=== PATIENT | female | born 2000 | race Two or more races ===

== ENCOUNTER 2024-07-20 06:48 | Inpatient (IN) | payer OTHER ==
[~2024-07-20] VITALS: Ht 157.5 cm; Wt 87.5 kg
[2024-07-20 06:23] VITALS: BP 124/80
[2024-07-20] MEDS ORDERED: AMPICILLIN SODIUM 2,000 MG VIAL IV ONE (07:00)
[2024-07-20] MEDS ORDERED: RINGERS SOLUTION,LACTATED 1,000 ML IV SCH (07:00)
[2024-07-20] MEDS ORDERED: ZOFRAN8 MG PO (07:07)
[2024-07-20 07:32] VITALS: BP 104/66
[2024-07-20 07:41] LABS: HEMOGLOBIN 11.5 g/dL (12.0-15.00); MEAN CELL VOLUME 77.9 fL (80.00-100.00); MEAN CORPUSCULAR HEMOGLOBIN 25.6 pg (27.00-32.0); MEAN CORPUSCULAR HGB CONC 32.9 g/dl (32.0-36.0); PLATELET COUNT 335 K/uL (150-450); RED BLOOD COUNT 4.49 M/uL (4.00-6.00); RED CELL DISTRIBUTION WIDTH 13.3 % (11.5-14.5)
[2024-07-20 08:29] LABS: INR < 0.93; PARTIAL THROMBOPLASTIN TIME 26.2 SECONDS (22.0-34.0)
[2024-07-20 09:07] LABS: ALBUMIN 2.7 gm/dL (3.4-5.0); BILIRUBIN TOTAL 0.23 mg/dL (0.3-1.2); CALCIUM 9.3 mg/dL (8.5-10.1); CREATININE SERUM 0.63 mg/dL (0.55-1.02); GFR 116.1; POTASSIUM 4.29 mEq/L (3.5-5.1); TOTAL PROTEIN 6.7 gm/dL (6.4-8.2)
[2024-07-20 11:00] VITALS: BP 129/72
[2024-07-20] MEDS ORDERED: OXYTOCIN 20 UNITS/500ML RL PIGGYBAG IV SCH (11:45)
[2024-07-20] MEDS ORDERED: AMPICILLIN SODIUM 1,000 MG VIAL IV SCH (12:00)
[2024-07-20] MEDS ORDERED: CITRIC ACID/SODIUM CITRATE 30 ML BLIST.PACK PO NR (12:15)
[2024-07-20 15:09] VITALS: BP 117/60
[2024-07-20] MEDS ORDERED: MORPHINE SULFATE 4 MG/ML CARTRIDGE IV ONE (16:30)
[2024-07-20] MEDS ORDERED: CEFOXITIN SODIUM 2,000 MG VIAL IV STA (18:09)
[2024-07-20] MEDS ORDERED: CITRIC ACID/SODIUM CITRATE 30 ML BLIST.PACK PO STA (18:09)
[2024-07-20] MEDS ORDERED: MORPHINE SULFATE 4 MG/ML VIAL IV ONE ×2 (20:55→21:25)
[2024-07-20] MEDS ORDERED: ERYTHROMYCIN BASE OPHT 1GM EACH TUBE OP ONE (21:00)
[2024-07-20] MEDS ORDERED: OXYTOCIN 10 UNITS/ML VIAL IV ONE (21:00)
[2024-07-20] MEDS ORDERED: OXYTOCIN 1,000 ML IV ONE (21:55)
[2024-07-20] MEDS ORDERED: KETOROLAC TROMETHAMINE 30 MG VIAL IM ONE ×2 (21:55)
[2024-07-20 22:11] VITALS: BP 131/80
[2024-07-20] MEDS ORDERED: OXYTOCIN 50,000 ML IV ONE (22:30)
[2024-07-20] MEDS ORDERED: MEPERIDINE HCL/PF 50 MG/ML VIAL IM PRN (22:45)
[2024-07-20] MEDS ORDERED: PROMETHAZINE HCL 25 MG/ML AMPUL IM PRN (23:00)
[2024-07-21] VITALS: BP 114/78
[2024-07-21] MEDS ORDERED: SIMETHICONE 125 MG CAPSULE PO SCH (01:00)
[2024-07-21 01:58] LABS: HEMATOCRIT 35.2 % (36.0-45.00); HEMOGLOBIN 11.5 g/dL (12.0-15.00); MEAN CELL VOLUME 78.6 fL (80.00-100.00); MEAN CORPUSCULAR HEMOGLOBIN 25.6 pg (27.00-32.0); MEAN CORPUSCULAR HGB CONC 32.5 g/dl (32.0-36.0); PLATELET COUNT 328 K/uL (150-450); RED BLOOD COUNT 4.48 M/uL (4.00-6.00); RED CELL DISTRIBUTION WIDTH 13.3 % (11.5-14.5)
[2024-07-21 04:30] VITALS: BP 108/72
[2024-07-21] MEDS ORDERED: CEFAZOLIN SODIUM 1,000 MG VIAL IV ONE (05:00)
[2024-07-21] MEDS ORDERED: KETOROLAC TROMETHAMINE 10 MG TABLET PO SCH (06:00)
[2024-07-21 07:52] LABS: HEMATOCRIT 32.7 % (36.0-45.00); HEMOGLOBIN 10.8 g/dL (12.0-15.00); MEAN CELL VOLUME 79.2 fL (80.00-100.00); MEAN CORPUSCULAR HEMOGLOBIN 26.1 pg (27.00-32.0); PLATELET COUNT 307 K/uL (150-450); RED BLOOD COUNT 4.13 M/uL (4.00-6.00); RED CELL DISTRIBUTION WIDTH 13.7 % (11.5-14.5)
[2024-07-21 08:11] VITALS: BP 109/68
[2024-07-21] MEDS ORDERED: OxyCODONE HCL/APAP UD (PERCOCET) PO SCH (13:00)
[2024-07-21 13:28] VITALS: BP 111/72
[2024-07-21 15:46] VITALS: BP 138/65
[2024-07-22] VITALS: BP 111/73
[2024-07-22 09:22] VITALS: BP 114/75
[2024-07-22] MEDS ORDERED: FF) RHO(D) IMMUNE GLOBULIN (POM) IM NR (11:15)
[2024-07-22 15:59] VITALS: BP 130/75
[2024-07-23 01:00] VITALS: BP 113/73
[2024-07-23 10:07] VITALS: BP 118/76
== END 2024-07-23 11:15 | disposition home or self-care (01) | DRG 787 ==
LOC: LDR 06:48 → O/R 19:49 → OB/GYN 20:25
PROVIDERS: Obstetrics & Gynecology Maternal & Fetal Medicine; ADMIT Obstetrics & Gynecology; ATTEND Obstetrics & Gynecology
PROC: 4A1HXCZ Monitoring of Products of Conception, Cardiac Rate, External Approach (ICD-10-PCS; 2024-07-20)
PROC: BY4FZZZ Ultrasonography of Third Trimester, Single Fetus (ICD-10-PCS; 2024-07-20)
PROC: 10D00Z1 Extraction of Products of Conception, Low, Open Approach (ICD-10-PCS; principal; 2024-07-20 18:45)
DX: O64.0XX0 Obstructed labor due to incomplete rotation of fetal head, not applicable or unspecified (principal); O41.03X0 Oligohydramnios, third trimester, not applicable or unspecified; O33.8 Maternal care for disproportion of other origin; O26.843 Uterine size-date discrepancy, third trimester; O36.8130 Decreased fetal movements, third trimester, not applicable or unspecified; Z3A.38 38 weeks gestation of pregnancy; Z37.0 Single live birth; Z20.822 Contact with and (suspected) exposure to COVID-19

== ENCOUNTER 2025-05-23 20:28 | Emergency (ER) | payer OTHER ==
[~2025-05-23] VITALS: Ht 157.5 cm; Wt 82.6 kg
[~2025-05-23 20:28] MED LIST: ZOFRAN8 MG PO
[2025-05-23 21:15] LABS: BASO % 0.3 % (0.1-1.2); EOS # 0.17 (0.04-0.54); EOS % 1.4 % (0.7-7.0); LYMPH # 3.32 (1.18-3.74); LYMPH % 27.2 % (19.3-53.1); MEAN PLATELET VOLUME 9.40 fl (9.4-12.4); MONO # 0.89 (0.24-0.82); MONO % 7.3 % (4.7-12.5); NEUT # 7.76 (1.56-6.13); NEUT % 63.5 % (34.0-71.1); RED CELL DISTRIBUTION WIDTH 14.4 % (11.6-14.4)
== END 2025-05-23 22:57 | disposition home or self-care (01) ==
LOC: ER 20:28
PROVIDERS: General Practice
DX: O20.9 Hemorrhage in early pregnancy, unspecified (principal); Z3A.01 Less than 8 weeks gestation of pregnancy

== ENCOUNTER 2025-09-15 15:22 | Inpatient (IN) | payer OTHER ==
[~2025-09-15] VITALS: Ht 157.5 cm; Wt 86.2 kg
--- NOTE | 2025-09-15 16:16 | NUR ---
PTE ALERTA Y ORIENTADA X3 REFIERE DOLOR ABDOMINAL EN EL AREA DE [place] Y UN EPISODIO DE VOMITOS ANTES DE PRESENTARSE A DAVION DE EMERGENCIAS. SE GERMAN S/V Y SE UBICA.
[2025-09-15] MEDS ORDERED: ONDANSETRON HCL 2 MG/ML VIAL IV ONE (17:00)
[2025-09-15] MEDS ORDERED: 0.9 % SODIUM CHLORIDE 1,000 ML IV SCH ×2 (17:00→22:15)
[2025-09-15] MEDS ORDERED: KETOROLAC TROMETHAMINE 30 MG VIAL IV ONE (17:00)
[2025-09-15] MEDS ORDERED: FAMOtidine 10 MG/ML (4ML VIAL) IV PUSH ONE (17:00)
[2025-09-15] MEDS ORDERED: ONDANSETRON HCL 2 MG/ML VIAL ONE (17:56)
[2025-09-15] MEDS ORDERED: FAMOTIDINE/PF 20 MG/2 ML VIAL ONE (17:56)
[2025-09-15] MEDS ORDERED: KETOROLAC TROMETHAMINE 30 MG VIAL ONE (17:56)
--- NOTE | 2025-09-15 18:08 | NUR ---
PACIENTE EVALUADA POR QUIEN ORNDENA TRATAMIENTO MEDICO, RN CHASE LE ORIENTA A PACIENTE SOBRE EL MISMO Y REFIERE ENTENDER, LE COLECTA MUESTRAS DE LABORATORIO, LE CANALIZA Y LE ADMINSITRA MEDICAMENTOS BAJO MEDIDAS ASEPTICAS, PENDIENTE ESTUDIO DE CT LUE[place] DE RESULTADOS DE LABORATORIO. SE LE HACE ENTREGA A PACIENTE ENVASE PARA COLECTA DE U/A.
[2025-09-15 18:34] LABS: BASO % 0.4 % (0.1-1.2); EOS # 0.05 (0.04-0.54); EOS % 0.4 % (0.7-7.0); LYMPH # 2.51 (1.18-3.74); LYMPH % 20.6 % (19.3-53.1); MEAN PLATELET VOLUME 9.50 fl (9.4-12.4); MONO # 0.59 (0.24-0.82); MONO % 4.8 % (4.7-12.5); NEUT # 8.94 (1.56-6.13); NEUT % 73.5 % (34.0-71.1); RED CELL DISTRIBUTION WIDTH 13.3 % (11.6-14.4)
[2025-09-15 18:42] LABS: ERYTHROCYTE SEDIMENTATION RATE 44 mm/hr (0-20)
[2025-09-15 19:06] LABS: ALT/SGPT 44.0 U/L (12-78); AST/SGOT 17.0 U/L (15-37); BILIRUBIN TOTAL 0.42 mg/dL (0.3-1.2); BUN CREA RATIO 17.0 (7.0-25.0); CREATININE SERUM 0.65 mg/dL (0.55-1.02); GFR 111.06; GLOBULINA 4.9 G/DL (2.4-3.5); GLUCOSE FASTING 84.0 mg/dL (65-100); OSMOLALITY SERUM 274.0 MOSM/KG (275-295)
[2025-09-15 19:07] LABS: URINE APPEARANCE Clear; URINE BILIRRUBIN Negative (NEGATIVE); URINE BLOOD Moderate; URINE COLOR Yellow; URINE GLUCOSE Negative (NEGATIVE); URINE LEUKOCYTE Small; URINE NITRATE Negative; URINE PROTEIN 30 (NEGATIVE); URINE UROBILINOGEN 0.2 E.U./dl
[2025-09-15 19:11] LABS: URINE BACTERIA 551.2 uL (0.0-1933); URINE EPITHELIAL CELLS 12.4 uL (0.0-38.8); URINE RBC 82.8 uL (0.0-20.8); URINE WBC 62.9 uL (0.0-23.2)
[2025-09-15 19:13] LABS: URINE CAST 0.14 uL (0.0-1.40); URINE KETONE 80 (NEGATIVE)
[2025-09-15] MEDS ORDERED: ACETAMINOPHEN 500 MG GEL..CAP PO PRN (22:15)
[2025-09-15] MEDS ORDERED: ONDANSETRON HCL 4 MG in 0.9 % SODIUM CHLORIDE 50 ML IV PRN (22:15)
[2025-09-15] MEDS ORDERED: MORPHINE SULFATE 4 MG/ML CARTRIDGE IV PRN (22:15)
[2025-09-15] MEDS ORDERED: MORPHINE SULFATE 2 MG/ML SYRINGE IV ONE (22:45)
[2025-09-16] MEDS ORDERED: PIPERACILLIN/TAZOBACTAM SODIUM 3.375 GM in DEXTROSE 5 % IN WATER 100 ML IV SCH
[2025-09-16] MEDS ORDERED: PIPERACILLIN/TAZOBACTAM SODIUM 3.375 GM VIAL IV ONE (00:26)
[2025-09-16 02:06] LABS: INR 1.01
[2025-09-16 08:00] VITALS: BP 110/75; O2SAT 98
[2025-09-16] MEDS ORDERED: FAMOTIDINE/PF 20 MG in 0.9 % SODIUM CHLORIDE 8 ML IV PUSH SCH ×2 (09:00→21:00)
[2025-09-16 16:00] VITALS: BP 108/69; O2SAT 100
[2025-09-17 06:45] LABS: BASO % 0.5 % (0.1-1.2); EOS # 0.17 (0.04-0.54); EOS % 2.0 % (0.7-7.0); LYMPH # 2.92 (1.18-3.74); LYMPH % 34.2 % (19.3-53.1); MEAN PLATELET VOLUME 10.20 fl (9.4-12.4); MONO # 0.60 (0.24-0.82); MONO % 7.0 % (4.7-12.5); NEUT # 4.80 (1.56-6.13); NEUT % 56.1 % (34.0-71.1); RED CELL DISTRIBUTION WIDTH 13.2 % (11.6-14.4)
[2025-09-17 07:55] LABS: ALT/SGPT 29.0 U/L (12-78); AST/SGOT 13.0 U/L (15-37); BILIRUBIN TOTAL 0.42 mg/dL (0.3-1.2); BUN CREA RATIO 15.0 (7.0-25.0); CREATININE SERUM 0.85 mg/dL (0.55-1.02); GFR 81.49; GLOBULINA 3.5 G/DL (2.4-3.5); GLUCOSE FASTING 93.0 mg/dL (65-100); OSMOLALITY SERUM 285.0 MOSM/KG (275-295)
[2025-09-17 08:27] VITALS: BP 96/64; O2SAT 98
[2025-09-17 16:00] VITALS: BP 118/79; O2SAT 99
[2025-09-18 00:51] VITALS: BP 108/71; O2SAT 98
[2025-09-18 08:00] VITALS: BP 118/72
== END 2025-09-18 13:49 | disposition home or self-care (01) | DRG 446 ==
LOC: ER 15:23 → SEC-K 22:18 → SURG 22:18
PROVIDERS: General Practice; Internal Medicine Infectious Disease; ADMIT Internal Medicine; ATTEND Internal Medicine
PROC: BW21YZZ Computerized Tomography (CT Scan) of Abdomen and Pelvis using Other Contrast (ICD-10-PCS; principal; 2025-09-15)
PROC: BW40ZZZ Ultrasonography of Abdomen (ICD-10-PCS; 2025-09-15)
PROC: CF1C1ZZ Planar Nuclear Medicine Imaging of Hepatobiliary System, All using Technetium 99m (Tc-99m) (ICD-10-PCS; 2025-09-16)
DX: K80.20 Calculus of gallbladder without cholecystitis without obstruction (principal); R10.11 Right upper quadrant pain
CPT/HCPCS: 74177; 76700; 78227; J2805; A9537